=== PATIENT | female | born 1960 ===

== ENCOUNTER 2017-06-19 09:42 | Emergency (ER) | payer MEDICAID ==
[2017-06-19 09:59] VITALS: BP 148/82; PULSE 102; RESP 20; TEMP 100.5; O2SAT 95
--- NOTE | 2017-06-19 10:52 | C.PDOC ---
History Of Present Illness 57-year-old female, presents to the emergency department with complaints of left dental pain and fever. Patient seen by dentist for tooth infection, and given Rx for antibiotics, which she completed last week. Patient did not f/u afterward, resulting in her coming to ED today for evaluation of pain. States she noted pus-like discharge coming from left nostril. Denies chest pain, dizziness, neck pain, cough, or any other associated symptoms. No other complaints at this time. Time Seen by Provider: 06/19/17 10:09 Chief Complaint (Nursing): Dental Pain History Per: Patient History/Exam Limitations: no limitations Past Medical History Reviewed: Historical Data, Nursing Documentation, Vital Signs Vital Signs: Last Vital Signs Temp 100.5 F H 06/19/17 09:55 Pulse 102 H 06/19/17 09:55 Resp 20 06/19/17 09:55 BP 148/82 06/19/17 09:55 Pulse Ox 95 06/19/17 16:15 - Medical History PMH: Anxiety, Asthma, Back Problems, Depression Surgical History: Cholecystectomy (1987) Family History: States: No Known Family Hx - Social History Hx Tobacco Use: No Hx Alcohol Use: Yes Hx Substance Use: No - Immunization History Hx Tetanus Toxoid Vaccination: No Hx Influenza Vaccination: No Hx Pneumococcal Vaccination: No Review Of Systems Constitutional: Positive for: Fever ENT: Positive for: Other (teeth pain) Respiratory: Negative for: Cough, Shortness of Breath Physical Exam - Physical Exam Appears: Non-toxic, No Acute Distress Skin: Warm, Dry, No Rash Head: Normacephalic Nose: Normal, No Flaring, No Discharge, No Deformity Oral Mucosa: Moist Lips: Normal Appearing Teeth: Other (No abscess. Mild tenderness to left upper mandible) Neck: Normal ROM Cardiovascular: Rhythm Regular, No Murmur Respiratory: Normal Breath Sounds, No Accessory Muscle Use Neurological/Psych: Oriented x3, Normal Speech ED Course And Treatment O2 Sat by Pulse Oximetry: 95 (RA) Pulse Ox Interpretation: Normal Progress Note: Patient treated with Motrin and Clindamycin. On reassessment, patient is resting comfortably, and is in no acute distress. Patient was instructed to follow up with physician/clinic in 1-2 days for further evaluation. Disposition Counseled Patient/Family Regarding: Diagnosis, Need For Followup, Rx Given - Disposition Referrals: Anayeli Ospina MD [Medical Doctor] - Disposition: HOME/ ROUTINE Disposition Time: 11:00 Condition: STABLE Additional Instructions: FOLLOW UP WITH YOUR DENTIST WITHIN 1 WEEK USE MEDICATIONS DIRECTED DRINK PLENTY OF FLUIDS RETURN TO EMERGENCY ROOM IF SYMPTOMS WORSEN SEGUIMIENTO CON HOWARD DENTISTA DENTRO DE 1 SEMANA USE MEDICAMENTOS SEGN LO INDICADO BEBER MUCHO LQUIDO REGRESE AL STACEY DE EMERGENCIA SI LOS SNTOMAS EMPEORAN Prescriptions: Clindamycin [Cleocin] 300 mg PO TID #21 cap Ibuprofen [Motrin Tab] 600 mg PO Q6 PRN #30 tab PRN Reason: fever/pain Instructions: Sinusitis in Adults Forms: [employer] (Sinhala) Print Language: LAO - POA Present On Arrival: None - Clinical Impression Clinical Impression: Sinusitis - Scribe Statement The provider has reviewed the documentation as recorded by the Scribe (Soctt Holt) All medical record entries made by the Scribe were at my direction and personally dictated by me. I have reviewed the chart and agree that the record accurately reflects my personal performance of the history, physical exam, medical decision making, and the department course for this patient. I have also personally directed, reviewed, and agree with the discharge instructions and disposition.
== END 2017-06-19 11:07 | disposition home or self-care (01) ==
LOC: C.ER 09:42
DX: J32.9 Chronic sinusitis, unspecified (principal)